=== PATIENT | female | born 1975 | race Caucasian/White ===

== ENCOUNTER 2016-09-19 08:35 | Day surgery (SDC) | payer BC ==
[~2016-09-19 08:35] MED LIST: RINGERS SOLUTION,LACTATED 1,000 ML IV PRN; ceFAZolin SODIUM 2 GM in DEXTROSE 5 % IN WATER 50 ML IV PRN
[2016-09-19 09:09] LABS: Hematocrit 40.5 % (37.0-47.0); Mean Cell Volume 74.4 fl (78-100); Mean Corpuscular Hemoglobin 22.1 pg (27-31); Mean Corpuscular Hgb Conc 29.6 g/dl (32-36); Mean Platelet Volume 9.6 fl (6.0-9.5); Neutrophil % 63.9 % (42-75.0); Platelet Count 249 K/mm3 (150-450); Red Blood Count 5.44 M/mm3 (4.2-5.4); Red Cell Distribution Width 19.1 % (11.5-14.0); White Blood Count 4.7 K/mm3 (4.0-10.5)
[2016-09-19] MEDS ORDERED: BUPIVACAINE HCL/EPINEPHRINE 50 ML VIAL IJ ONE ×2 (10:30)
[2016-09-19] MEDS ORDERED: RINGERS SOLUTION,LACTATED 1,000 ML IV ONE (11:05)
[2016-09-19] MEDS ORDERED: oxyCODONE HCL/ACETAMINOPHEN 1 TAB TABLET PO PRN (12:48)
[2016-09-19] MEDS ORDERED: IBUPROFEN 600 MG TABLET PO PRN (12:49)
--- NOTE | 2016-09-19 14:26 | OR ---
Operative Report - Dictated Report Narrative: Operative Report -09/19/2016 Total Vaginal Hysterectomy, Modified Velasco's Culdoplasty, Right Salpingectomy Preoperative Diagnosis: Menorrhagia Postoperative Diagnosis: Menorrhagia Procedure: Total Vaginal Hysterectomy, Modified Velasco's Culdoplasty, Bilateral Salpingectomy Surgeon: Amber Cabral Anesthesia: Chinmay Garcia VOLCANOLOGY PROFESSOR, general with ET tube Findings: Large fibroid uterus. Normal-appearing right tube and ovary. Left tube and ovary unable to clearly visualized during the procedure. Retracted after cornual angle transection. Fluids: 1300 ml EBL: 300 ml Drains: Straight cath after procedure, 125 mL of clear yellow urine Pathology: Uterus Complications: None Condition: Stable Procedure: The patient was taken to the operating room with IV fluids running. She was placed in the dorsal lithotomy position after anesthesia was induced. She was prepped and draped in the normal sterile fashion. A weighted speculum was placed in the posterior aspect of the vagina and a Maupin retractor was placed in the anterior aspect of the vagina. Breisky retractors were placed laterally. The cervix was grasped with 2 single-tooth tenaculums. The cervix was injected circumferentially with 0.5% Marcaine with epinephrine. A circumferential incision was made around the cervix using a Hagen Franco scissors. Attention was then turned posteriorly. Sharp dissection was performed until the posterior peritoneal reflection was clearly visualized. The peritoneum was then entered sharply. Location was confirmed by visualization of the bowel. [place] retractor was then placed into the abdominal cavity. Attention was then turned anteriorly. Sharp dissection was performed until the uterine scar was reached. The uterosacral ligaments were clamped with a curved Anupam, transected and suture ligated using 0 Vicryl. These ligatures were tagged for later modified Velasco's culdoplasty. Attention was then turned to the cardinal ligaments. They were clamped with the gyrus Anupam clamp, cauterized with the gyrus and transected. The uterine arteries were clamped with the gyrus Anupam, cauterized and transected for excellent hemostasis. The uterus was delivered posteriorly as the anterior peritoneum was not clearly entered. The cervix was amputated. The uterus was cored and morsellated. The cornual angles were clamped with Gyrus Anupam clamp, cauteried and transected bilaterally and the uterus was amputated. There was excellent hemostasis. The rigtht tube and ovary were clearly visualized and were grossly normal in appearance. The right fallopian tube was identified and was grasped and elevated. Gyrus Anupam was used to cauterize and transect along the mesoovarium remove the tube from the cornual angle and mesoovarium. The left tube and ovary were not clearly visualized. The posterior vaginal cuff was reapproximated using 2-0 Vicryl in a running locked fashion for excellent hemostasis. The uterosacral tags were then utilized for culdoplasty. The suture was driven through the uterosacral ligament, reefed across the peritoneum posteriorly and brought out the midline of the posterior vaginal cuff. The vaginal cuff was closed in a vertical fashion with 2-0 Vicryl in a running lock stitch for excellent hemostasis. The culdoplasty stitch was tied down to elevate the vaginal cuff. The bladder was catheterized and clear yellow urine was drained. The patient tolerated the procedure well. Sponge lap needle and instrument counts are correct x 2. The patient was taken to the recovery room in stable condition.
[2016-09-19 14:37] VITALS: BP 121/68
== END 2016-09-19 08:36 | disposition home or self-care (01) ==
LOC: AMB 08:35
PROVIDERS: ATTEND Obstetrics & Gynecology
PROC: 0UTC7ZZ Resection of Cervix, Via Natural or Artificial Opening (ICD-10-PCS; 2016-09-19)
PROC: 0UT77ZZ Resection of Bilateral Fallopian Tubes, Via Natural or Artificial Opening (ICD-10-PCS; 2016-09-19)
PROC: 0UT97ZZ Resection of Uterus, Via Natural or Artificial Opening (ICD-10-PCS; principal; 2016-09-19 10:45)
DX: D25.1 Intramural leiomyoma of uterus (principal); D25.0 Submucous leiomyoma of uterus; N92.0 Excessive and frequent menstruation with regular cycle; F17.200 Nicotine dependence, unspecified, uncomplicated; Z68.21 Body mass index [BMI] 21.0-21.9, adult